=== PATIENT | male | born 1985 | race Caucasian/White ===

== ENCOUNTER 2020-10-11 20:51 | Emergency (ER) | payer OTHER ==
[2020-10-11 21:41] LABS: AMPHETAMINES NEGATIVE (NEGATIVE); BARBITURATES NEGATIVE (NEGATIVE); BILIRUBIN NEGATIVE (NEGATIVE); BLOOD NEGATIVE Ery/uL (NEGATIVE); CLARITY CLEAR (CLEAR); COLOR YELLOW (YELLOW); ECSTASY (MDMA) NEGATIVE (NEGATIVE); GLUCOSE (U) NORMAL (NORMAL); LEUKOCYTES NEGATIVE Leu/uL (NEGATIVE); MARIJUANA (THC) NEGATIVE (NEGATIVE); METHADONE NEGATIVE (NEGATIVE); NITRITE NEGATIVE (NEGATIVE); OPIATES POSITIVE (NEGATIVE); OXYCODONE NEGATIVE (NEGATIVE); PROTEIN NEGATIVE (NEGATIVE); UROBILINOGEN 0.2 mg/dL (0.2-1.0)
[2020-10-11 22:06] LABS: BASOPHIL 0.5 % (0-2); EOSINOPHIL 0.1 % (0-5); HCT 39.2 % (42.0-52.0); HGB 12.7 g/dl (13.2-18.0); LYMPHOCYTE 14.7 % (15-48); MCHC 32.4 g/dL (32.0-36.0); MCV 89.5 fL (78.0-100.0); MONOCYTE 8.3 % (0-12); MPV 8.9 fL (6.0-9.5); NEUTROPHIL 76.2 % (41-80); NRBC 0; PLT 282 K/uL (150-400); RBC 4.38 M/uL (4.70-6.00); RDW 12.8 % (11.5-14.0); WBC 8.3 K/uL (4.0-10.5)
[2020-10-11 22:24] LABS: ACETAMINOPHEN (TYLENOL) < 2.0 ug/mL (10.0-30.0); ALBUMIN 3.4 g/dL (3.4-5.0); ALKALINE PHOSHATASE 189 U/L (46-116); ALT 54 U/L (16-63); AST 38 U/L (15-37); BILIRUBIN - TOTAL 0.2 mg/dL (0.2-1.0); BUN 7 mg/dL (7-18); BUN/CREAT RATIO (CALC) 13.7 RATIO; CHLORIDE 102 mmol/L (98-107); CO2 (BICARBONATE) 25 mmol/L (21-32); CREATININE 0.51 mg/dL (0.67-1.17); GLOBULIN (CALCULATION) 4.2 g/dL; GLUCOSE 91 mg/dL (74-106); POTASSIUM 3.4 mmol/L (3.5-5.1); TOTAL PROTEIN 7.6 g/dL (6.4-8.2)
== END 2020-10-12 09:15 | disposition other institution (70) ==
LOC: FER 20:51
PROVIDERS: Emergency Medicine Emergency Medical Services
DX: S51.812A Laceration without foreign body of left forearm, initial encounter (principal); F32.9 Major depressive disorder, single episode, unspecified; I10 Essential (primary) hypertension; F41.9 Anxiety disorder, unspecified; F17.210 Nicotine dependence, cigarettes, uncomplicated; Z23 Encounter for immunization; Z79.899 Other long term (current) drug therapy; X78.9XXA Intentional self-harm by unspecified sharp object, initial encounter; Z20.822 Contact with and (suspected) exposure to COVID-19
CPT/HCPCS: 36415; 80053; 80305; 81003; 85025; 90471; 90715; G0480; U0002